=== PATIENT | female | born 1970 | race Caucasian/White ===

== ENCOUNTER 2017-02-25 22:23 | Emergency (ER) | payer OTHER ==
[2017-02-25 22:34] VITALS: TEMP 98.4; BMI 28.5
--- NOTE | 2017-02-25 23:21 | PDOC ---
History of Present Illness - General History Source: Patient Exam Limitations: No Limitations - History of Present Illness Initial Comments: 02/25/17 23:29 The patient is a 47 year old female with a significant PMH of diabetes who presents to the emergency department with abdominal pain beginning about 4 days ago. The patient reports that the abdominal pain is in the suprapubic region but radiates to the epigastrium. The patient reports that her abdominal pain is novel. The patient reports that her periods are slowing down. The patient denies vaginal bleeding or discharge. The patient denies and changes in appetite. The patient denies chest pain, shortness of breath, headache and dizziness. Denies fever, chills, nausea, vomit, diarrhea and constipation. Denies dysuria, frequency, urgency and hematuria. Allergies: NKA Past surgical history: Social history: No reported cigarette, alcohol, or drug use. <Asif Gill - Last Filed: 02/25/17 23:29> - General History Source: Patient <Yang Henry - Last Filed: 02/26/17 04:21> - General Chief Complaint: Pain, Acute Stated Complaint: PAIN Time Seen by Provider: 02/25/17 23:16 Past History <Asif Gill - Last Filed: 02/25/17 23:29> - Past Medical History Diabetes: Yes HTN: Yes Hypercholesterolemia: Yes - Psycho/Social/Smoking Cessation Hx Suicidal Ideation: No Smoking History: Never smoked Information on smoking cessation initiated: No Hx Alcohol Use: No Drug/Substance Use Hx: No <Yang Henry - Last Filed: 02/26/17 04:21> - Past Medical History Allergies/Adverse Reactions: Allergies Allergy/AdvReac Type Severity Reaction Status Date / Time No Known Allergies Allergy Verified 02/26/17 00:39 Home Medications: Ambulatory Orders Levofloxacin [Levaquin -] 500 mg PO DAILY #7 tablet 02/26/17 Review of Systems - Review of Systems Comments:: 02/25/17 23:29 CONSTITUTIONAL: Absent: fever, chills, diaphoresis, generalized weakness, malaise, loss of appetite HEENT: Absent: rhinorrhea, nasal congestion, throat pain, throat swelling, difficulty swallowing, mouth swelling, ear pain, eye pain, visual Changes CARDIOVASCULAR: Absent: chest pain, syncope, palpitations, irregular heart rate, lightheadedness , peripheral edema RESPIRATORY: Absent: cough, shortness of breath, dyspnea with exertion, orthopnea, wheezing, stridor, hemoptysis GASTROINTESTINAL: (+) Abdominal pain from suprapubic region to epigastrium Absent: abdominal distension, nausea, vomiting, diarrhea, constipation, melena, hematochezia GENITOURINARY: Absent: dysuria, frequency, urgency, hesitancy, hematuria, flank pain, genital pain MUSCULOSKELETAL: Absent: myalgia, arthralgia, joint swelling SKIN: Absent: rash, itching, pallor HEMATOLOGIC/IMMUNOLOGIC: Absent: easy bleeding, easy bruising, lymphadenopathy, frequent infections ENDOCRINE: Absent: unexplained weight gain, unexplained weight loss, heat intolerance, cold intolerance NEUROLOGIC: Absent: headache, focal weakness or paresthesias, dizziness, unsteady gait, seizure, mental status changes, bladder or bowel incontinence PSYCHIATRIC: Absent: anxiety, depression, suicidal or homicidal ideation, hallucinations. <Asif Gill - Last Filed: 02/25/17 23:29> *Physical Exam - Vital Signs Last Vital Signs Temp Pulse Resp BP Pulse Ox 98.4 F 86 18 122/78 100 02/25/17 22:31 02/25/17 22:31 02/25/17 22:31 02/25/17 22:31 02/25/17 22:31 - Physical Exam Comments: 02/25/17 23:30 GENERAL: Well developed, well nourished. Awake and alert. No acute distress. HEENT: Normocephalic, atraumatic. PERRLA, EOMI. No conjunctival pallor. Sclera are non- icteric. Moist mucous membranes. Oropharynx is clear. NECK: Supple. Full ROM. No JVD. Carotid pulses 2+ and symmetric, without bruits. No thyromegaly. No lymphadenopathy. CARDIOVASCULAR: Regular rate and rhythm. No murmurs, rubs, or gallops. Distal pulses are 2+ and symmetric. PULMONARY: No evidence of respiratory distress. Lungs clear to auscultation bilaterally. No wheezing, rales or rhonchi. ABDOMINAL: (+) Periumbilical tenderness. Soft. Non-distended. No rebound or guarding. No organomegaly. Normoactive bowel sounds. MUSCULOSKELETAL Normal range of motion at all joints. No bony deformities or tenderness. No CVA tenderness. EXTREMITIES: No cyanosis. No clubbing. No edema. No calf tenderness. SKIN: Warm and dry. Normal capillary refill. No rashes. No jaundice. NEUROLOGICAL: Alert, awake, appropriate. Cranial nerves 2-12 intact. No deficits to light touch and temperature in face, upper extremities and lower extremities. No motor deficits in the in face, upper extremities and lower extremities. Normoreflexic in the upper and lower extremities. Normal speech. Toes are downgoing bilaterally. Gait is normal without ataxia. PSYCHIATRIC: Cooperative. Good eye contact. Appropriate mood and affect. 02/25/17 23:30 <Asif Gill - Last Filed: 02/25/17 23:29> - Vital Signs Last Vital Signs Temp Pulse Resp BP Pulse Ox 98.4 F 86 18 122/78 100 02/25/17 22:31 02/25/17 22:31 02/25/17 22:31 02/25/17 22:31 02/25/17 22:31 <Yang Henry - Last Filed: 02/26/17 04:21> ED Treatment Course - LABORATORY CBC & Chemistry Diagram: 02/26/17 00:35 02/26/17 01:15 <Yang Henry - Last Filed: 02/26/17 04:21> Medical Decision Making - Medical Decision Making 02/26/17 04:21 Dr. Henry: The scribe's documentation has been prepared under my direction and personally reviewed by me in its entirery. I confirm that the note above accurately reflects all work, treatment, procedures, and medical decision making performed by me. <Yang Henry - Last Filed: 02/26/17 04:21> *DC/Admit/Observation/Transfer - Attestations Scribe Attestion: 02/25/17 23:30 Documentation prepared by Asif Gill, acting as product manager medical device for Yang Henyr MD. <Asif Gill - Last Filed: 02/25/17 23:29> - Discharge Dispostion Admit: No <Yang Henry - Last Filed: 02/26/17 04:21> Diagnosis at time of Disposition: UTI (urinary tract infection) Qualifiers: Urinary tract infection type: site unspecified Hematuria presence: without hematuria Qualified Code(s): N39.0 - Urinary tract infection, site not specified Ovarian cyst Qualifiers: Laterality: left Qualified Code(s): N83.202 - Unspecified ovarian cyst, left side - Discharge Dispostion Disposition: HOME Condition at time of disposition: Stable - Prescriptions Prescriptions: Levofloxacin [Levaquin -] 500 mg PO DAILY #7 tablet - Referrals Referrals: Jessica Miles MD [Staff Physician] - - Patient Instructions Printed Discharge Instructions: DI for Urinary Tract Infection (UTI), DI for Ovarian Cyst Additional Instructions: start taking antibiotic tomorrow. Drink plenty of fluids. Return if any problems Print Language: INDONESIAN
[2017-02-25] MEDS ORDERED: morphine CARPU-JECT 2 MG/1 ML DISP.SYRIN IVPUSH ONE (23:24)
[2017-02-25] MEDS ORDERED: SODIUM CHLORIDE 1,000 ML IV STA (23:24)
[2017-02-25] MEDS ORDERED: ONDANSETRON 4 MG/2 ML VIAL IVPUSH STA (23:25)
[2017-02-26] MEDS ORDERED: morphine CARPU-JECT 4 MG/1 ML DISP.SYRIN ONE (00:32)
[2017-02-26 00:44] LABS: BASOPHIL 1.3 % (0-2.0); EOSINOPHIL 2.4 % (0-4.5); MCH 28.6 pg (25.7-33.7); MCHC 33.4 g/dl (32.0-36.0); MEAN CELL VOLUME 85.7 fl (80-96); NEUTROPHILS 48.4 % (42.8-82.8); RDW 13.3 % (11.6-15.6); WHITE BLOOD COUNT 10.2 K/mm3 (4.0-10.0)
[2017-02-26 00:57] LABS: INR 0.97 (0.82-1.09); PROTHROMBIN TIME (PATIENT) 10.7 SEC (9.98-11.88)
[2017-02-26 01:32] LABS: PLATELET COMMENT2 UNABLE TO ENUMERATE; PLATELET COMMENT3 NO CLOTTING DETECTED; PLATELET ESTIMATE ADEQUATE (NORMAL)
[2017-02-26 01:50] LABS: URINE APPEARANCE SLCLOUDY; URINE BILIRUBIN NEGATIVE (NEGATIVE); URINE BLOOD NEGATIVE (NEGATIVE); URINE COLOR LTYELLOW; URINE GLUCOSE (UA) NEGATIVE (NEGATIVE); URINE KETONE NEGATIVE (NEGATIVE); URINE NITRITE POSITIVE (NEGATIVE); URINE PROTEIN NEGATIVE (NEGATIVE); URINE UROBILINOGEN NEGATIVE mg/dL (0.2-1.0)
[2017-02-26 01:51] LABS: URINE LEUK ESTERASE 1+ (NEGATIVE)
[2017-02-26 01:54] LABS: URINE BACTERIA MODERATE /hpf (NONE SEEN); URINE MUCUS RARE; URINE RBC 1 /hpf (0-3); URINE WBC 42 /hpf (3-5)
[2017-02-26 02:12] LABS: ALBUMIN 3.3 g/dl (3.4-5.0); ANION GAP 4 (8-16); CALCIUM 8.2 mg/dL (8.5-10.1); CO2 28 mmol/L (21-32); GLUCOSE,RANDOM 141 mg/dL (74-106); MAGNESIUM 2.2 mg/dL (1.8-2.4); SGOT/AST 6 U/L (15-37); SGPT/ALT 20 U/L (12-78)
[2017-02-26 02:13] LABS: ALK PHOS 69 U/L (45-117); BILIRUBIN,TOTAL 0.4 mg/dL (0.2-1.0); TOT PROT 6.6 g/dl (6.4-8.2)
[2017-02-26 04:30] VITALS: BP 116/68; PULSE 78
== END 2017-02-26 04:29 | disposition home or self-care (01) ==
LOC: JER 22:23
PROC: 3E033NZ Introduction of Analgesics, Hypnotics, Sedatives into Peripheral Vein, Percutaneous Approach (ICD-10-PCS; principal; 2017-02-25)
PROC: 3E0333Z Introduction of Anti-inflammatory into Peripheral Vein, Percutaneous Approach (ICD-10-PCS; 2017-02-25)
PROC: 3E033GC Introduction of Other Therapeutic Substance into Peripheral Vein, Percutaneous Approach (ICD-10-PCS; 2017-02-25)
DX: N39.0 Urinary tract infection, site not specified (principal); B96.89 Other specified bacterial agents as the cause of diseases classified elsewhere; N83.202 Unspecified ovarian cyst, left side; I10 Essential (primary) hypertension; E11.9 Type 2 diabetes mellitus without complications; E78.00 Pure hypercholesterolemia, unspecified
CPT/HCPCS: 36415; 74177-TC; 80053; 81003; 81015; 83690; 83735; 84703; 85025; 85610; 87086; 87186; 99283-25